=== PATIENT | female | born 1985 | race Two or more races ===

== ENCOUNTER 2021-03-26 12:57 | Emergency (ER) | payer MEDICAID, OTHER ==
[~2021-03-26] VITALS: Ht 157.5 cm; Wt 68.9 kg
[2021-03-26 13:33] LABS: Basophils # (auto) 0 10 ^3/uL (0-0.2); Basophils % (auto) 0.6 % (0.0-2.0); Eosinophils # (auto) 0.1 10 ^3/uL (0-0.8); Hematocrit 39.2 % (36.0-46.0); Hemoglobin 13.3 g/dL (12.2-16.2); Lymphocytes # (auto) 2.2 10 ^3/uL (0.4-5.4); Lymphocytes % (auto) 32.8 % (10.0-50.0); Mean Corpuscular Hemoglobin 30.7 pg (28.0-32.0); Mean Corpuscular Hgb Conc. 33.9 g/dL (32.0-36.0); Mean Corpuscular Volume 90.7 fL (80.0-100.0); Monocytes # (auto) 0.6 10 ^3/uL (0-1.3); Monocytes % (auto) 9.2 % (0.0-12.0); Neutrophils # (auto) 3.7 10 ^3/uL (1.6-8.6); Neutrophils % (auto) 55.4 % (37.0-80.0); Nucleated Red Blood Cells % 0.1 %; Red Blood Cells 4.32 10^6/uL (4.0-5.20); Red Cell Distribution Width 12.1 % (11.8-14.3); White Blood Cell 6.7 10^3/uL (4.4-10.8)
[2021-03-26 14:46] LABS: Anion Gap 5 (5-15); Blood Urea Nitrogen 7 mg/dL (7-18); Carbon Dioxide 28 mmol/L (21-32); Chloride 106 mmol/L (98-107); Glucose 80 mg/dL (74-106); Sodium 139 mmol/L (136-145)
[2021-03-26 14:47] LABS: Alanine Aminotransferase 21 U/L (13-56); Albumin 3.7 g/dL (3.4-5.0); Alkaline Phosphatase 81 U/L (45-117); Aspartate Aminotransferase 16 U/L (15-37); BUN/Creatinine Ratio 9.9; Bilirubin, Total 0.5 mg/dL (0.2-1.0); Calcium 8.7 mg/dL (8.5-10.1); GFR African American 120 mL/min; GFR Non-African American 99 mL/min; Total Protein 8.2 g/dL (6.4-8.2)
[2021-03-26 15:43] VITALS: BP 132/82
== END 2021-03-26 16:18 | disposition home or self-care (01) ==
LOC: ER 12:57
DX: F41.9 Anxiety disorder, unspecified (principal); R20.2 Paresthesia of skin
CPT/HCPCS: 36415; 70450; 72125; 80053; 84484; 85025

== ENCOUNTER 2021-08-25 13:37 | Emergency (ER) | payer MEDICAID ==
[~2021-08-25] VITALS: Ht 157.5 cm; Wt 68.9 kg
[2021-08-25 14:37] VITALS: BP 127/97
[2021-08-25 14:37] LABS: Alcohol, Urine < 3.0 mg/dL (0-10); Amphetamine Screen, Urine NEGATIVE (NEGATIVE); Barbiturate Scree,Urine NEGATIVE (NEGATIVE); Benzodiazephine Screen, Urine NEGATIVE (NEGATIVE); Cannabinoid Screen, Urine NEGATIVE (NEGATIVE); Cocaine Screen, Urine NEGATIVE (NEGATIVE); Opiate Scree,Urine NEGATIVE (NEGATIVE); Phencyclidine Screen, Urine NEGATIVE (NEGATIVE)
[2021-08-25 14:41] LABS: Urine Bacteria FEW /hpf (None Seen); Urine Blood Negative /uL (Negative); Urine Specific Gravity 1.016 (1.001-1.035); Urine WBC 2 /hpf (0 - 5)
[2021-08-25 16:03] LABS: Basophils # (auto) 0.1 10 ^3/uL (0-0.2); Basophils % (auto) 0.5 % (0.0-2.0); Eosinophils # (auto) 0.2 10 ^3/uL (0-0.8); Eosinophils % (auto) 1.7 % (0.0-7.0); Hematocrit 40.9 % (36.0-46.0); Hemoglobin 13.8 g/dL (12.2-16.2); Lymphocytes # (auto) 2.5 10 ^3/uL (0.4-5.4); Lymphocytes % (auto) 21.8 % (10.0-50.0); Mean Corpuscular Hgb Conc. 33.8 g/dL (32.0-36.0); Mean Corpuscular Volume 91.5 fL (80.0-100.0); Monocytes # (auto) 0.8 10 ^3/uL (0-1.3); Monocytes % (auto) 7.2 % (0.0-12.0); Neutrophils # (auto) 7.9 10 ^3/uL (1.6-8.6); Neutrophils % (auto) 68.8 % (37.0-80.0); Nucleated Red Blood Cells % 0.1 %; Red Blood Cells 4.47 10^6/uL (4.0-5.20); Red Cell Distribution Width 12.1 % (11.8-14.3); White Blood Cell 11.5 10^3/uL (4.4-10.8)
[2021-08-25] MEDS ORDERED: KETOROLAC TROMETH 60MG/2ML VIAL IM ONE (16:15)
[2021-08-25 16:23] LABS: Albumin 3.6 g/dL (3.4-5.0); Calcium 8.7 mg/dL (8.5-10.1); Potassium 4.4 mmol/L (3.5-5.1)
[2021-08-25 16:29] LABS: BUN/Creatinine Ratio 12.7; Bilirubin, Total 0.3 mg/dL (0.2-1.0)
== END 2021-08-25 17:13 | disposition home or self-care (01) ==
LOC: ER 13:37
DX: G44.209 Tension-type headache, unspecified, not intractable (principal); R94.31 Abnormal electrocardiogram [ECG] [EKG]; Z32.02 Encounter for pregnancy test, result negative
CPT/HCPCS: 36415; 80053; 80307; 81001; 81025; 84484; 85025; 93005; 96372; 99284; J1885

== ENCOUNTER 2021-08-30 20:14 | Emergency (ER) | payer MEDICAID ==
[~2021-08-30] VITALS: Ht 157.5 cm; Wt 68.9 kg
[2021-08-30 22:45] LABS: Urine Amorphous Crystal FEW /hpf (None Seen); Urine Bacteria MOD /hpf (None Seen); Urine Blood Negative /uL (Negative); Urine Budding Yeast MODERATE /hpf (None Seen); Urine Specific Gravity 1.014 (1.001-1.035); Urine WBC 3 /hpf (0 - 5)
[2021-08-31] MEDS ORDERED: ACETAMINOPHEN 325 MG TAB PO ONE (00:15)
[2021-08-31 01:53] LABS: Basophils # (auto) 0.1 10 ^3/uL (0-0.2); Basophils % (auto) 0.6 % (0.0-2.0); Eosinophils # (auto) 0.2 10 ^3/uL (0-0.8); Eosinophils % (auto) 1.6 % (0.0-7.0); Hematocrit 40.1 % (36.0-46.0); Hemoglobin 13.3 g/dL (12.2-16.2); Lymphocytes # (auto) 3.6 10 ^3/uL (0.4-5.4); Mean Corpuscular Hemoglobin 30.4 pg (28.0-32.0); Mean Corpuscular Hgb Conc. 33.2 g/dL (32.0-36.0); Mean Corpuscular Volume 91.4 fL (80.0-100.0); Monocytes # (auto) 0.8 10 ^3/uL (0-1.3); Monocytes % (auto) 8.7 % (0.0-12.0); Neutrophils # (auto) 4.9 10 ^3/uL (1.6-8.6); Neutrophils % (auto) 51.1 % (37.0-80.0); Red Blood Cells 4.39 10^6/uL (4.0-5.20); Red Cell Distribution Width 12.1 % (11.8-14.3); White Blood Cell 9.5 10^3/uL (4.4-10.8)
[2021-08-31 02:08] LABS: Albumin 3.8 g/dL (3.4-5.0); Calcium 9.6 mg/dL (8.5-10.1); Magnesium 2.6 mg/dL (1.6-2.6); Potassium 3.8 mmol/L (3.5-5.1)
[2021-08-31 02:14] LABS: INR 0.99 (0.9-1.15)
[2021-08-31 02:25] LABS: BUN/Creatinine Ratio 12.3; Bilirubin, Total 0.2 mg/dL (0.2-1.0); Total Protein 8.8 g/dL (6.4-8.2)
[2021-08-31 03:55] VITALS: BP 121/77
== END 2021-08-31 04:48 | disposition home or self-care (01) ==
LOC: ER 20:14
DX: R07.9 Chest pain, unspecified (principal)
CPT/HCPCS: 36415; 71045; 80053; 81001; 83735; 83880; 84484; 85025; 85610